=== PATIENT | male | born 1950 | race Two or more races ===

== ENCOUNTER 2018-04-01 23:34 | Inpatient (IN) | payer MEDICARE, MEDICAID ==
[~2018-04-01] VITALS: Ht 175.3 cm; Wt 68.0 kg
--- NOTE | 2018-04-01 23:35 | NUR ---
DR SHRUTI DUNHAM MD AT BEDSIDE FOR MSE.
[2018-04-01] MEDS ORDERED: MULT-1119 (23:51)
[2018-04-01] MEDS ORDERED: VALP250S4 PO (23:51)
[2018-04-01] MEDS ORDERED: FERR-56 PO (23:51)
[2018-04-01] MEDS ORDERED: DONE10TA11 PO (23:51)
[2018-04-01] MEDS ORDERED: RISP1SOL PO (23:51)
[2018-04-01] MEDS ORDERED: PRED20TA PO (23:51)
[2018-04-01] MEDS ORDERED: PANT40TA2 PO (23:51)
[2018-04-01] MEDS ORDERED: ACET-2154 PO ×2 (23:51)
[2018-04-01] MEDS ORDERED: MAGN30OR PO (23:51)
[2018-04-02 00:09] LABS: BASOPHILS # (AUTO) 0.1 K/uL (0.0-8.0); BASOPHILS % (AUTO) 0.6 % (0.0-2.0); CARBON DIOXIDE 27 mmol/L (21-32); CHLORIDE 101 mmol/L (98-107); CREATININE 1.4 mg/dL (0.6-1.3); EOSINOPHILS % (AUTO) 0.2 % (0.0-7.0); GLUCOSE 101 mg/dL (74-106); HEMATOCRIT 35.8 % (36.7-47.1); HEMOGLOBIN 11.4 g/dL (12.5-16.3); LYMPHOCYTES # (AUTO) 2.8 K/uL (20.0-40.0); LYMPHOCYTES % (AUTO) 29.2 % (20.5-51.5); MEAN CORPUSCULAR HEMOGLOBIN 22.2 uug (23.8-33.4); MEAN CORPUSCULAR HGB CONC 32 g/dL (32.5-36.3); MEAN CORPUSCULAR VOLUME 69.8 fL (73.0-96.2); MONOCYTES # (AUTO) 0.7 K/uL (2.0-10.0); MONOCYTES % (AUTO) 7.6 % (0.0-11.0); NEUTROPHILS % (AUTO) 62.4 % (38.5-71.5); PLATELET COUNT (AUTO) 416 K/uL (152-348); POTASSIUM 4.1 mmol/L (3.5-5.1); RED BLOOD CELL COUNT(AUTO) 5.13 MIL/uL (4.06-5.63); UREA NITROGEN, BLOOD 11 mg/dL (7-18); WHITE BLOOD COUNT (AUTO) 9.6 K/uL (3.6-10.2)
[2018-04-02 00:15] LABS: ACETAMINOPHEN 2.8 ug/mL (10-30); ALANINE AMINOTRANSFERASE 47 U/L (16-63); ALKALINE PHOSPHATASE 111 U/L (50-136); ASPARTATE AMINOTRANSFERASE 23 U/L (15-37); BILIRUBIN,DIRECT 0.1 mg/dL (0.0-0.2); BILIRUBIN,TOTAL 0.3 mg/dL (0.2-1.0); TOTAL PROTEIN, SERUM 6.8 g/dL (6.4-8.2)
[2018-04-02 00:22] LABS: ETHANOL < 3 MG/DL (0-0)
--- NOTE | 2018-04-02 00:23 | NUR ---
PT AMBULATED TO AND FROM BATHROOM W/ STEADY GAIT. NO DISTRESS NOTED.
[2018-04-02 00:26] LABS: *BILIRUBIN,URIN NEGATIVE (NEGATIVE); *BLOOD, URINE NEGATIVE (NEGATIVE); *CLARITY,URINE CLEAR (CLEAR); *COLOR,URINE LIGHT YELLOW (YELLOW); *KETONES,URINE NEGATIVE (NEGATIVE); *PROTEIN,URINE NEGATIVE (NEGATIVE); *UROBILINOGEN,URINE 0.2 E.U./dl (NORMAL); LEUKOCYTE ESTERASE ,URINE NEGATIVE (NEGATIVE); NITRITE, URINE NEGATIVE (NEGATIVE); UGLUCOSE NEGATIVE (NEGATIVE)
--- NOTE | 2018-04-02 00:32 | NUR ---
RADIOLOGY AT BEDSIDE FOR XRAY.
[2018-04-02 00:43] LABS: *AMPHETAMINE, URINE NEGATIVE (NEGATIVE); *BARBITURATE, URINE NEGATIVE (NEGATIVE); *CANNABINOID, URINE NEGATIVE (NEGATIVE); *COCCAINE, URINE NEGATIVE (NEGATIVE); *OPIATE, URINE NEGATIVE (NEGATIVE); *PHENCYCLIDINE SCREEN,URINE NEGATIVE (NEGATIVE)
[2018-04-02 01:05] LABS: BACTERIA,URINE NONE SEEN /HPF (NONE SEEN); RBC,URINE NONE SEEN /HPF (0-3); SQUAMOUS EPITHELIAL CELL,UR FEW /HPF (NONE SEEN)
--- NOTE | 2018-04-02 01:20 | NUR ---
REPORT GIVEN TO LUIS F SO.
--- NOTE | 2018-04-02 02:36 | NUR ---
Pt. admitted to [facility]HU, under care of Dr. BOWERS Belongs List completed
[2018-04-02 02:53] LABS: BAND % (MANUAL) 1 % (0-10); LYMPHOCYTES % (MANUAL) 21 % (20-40); METAMYELOCYTES % 3 % (0-1); MONOCYTES % (MANUAL) 8 % (2-10); NEUTROPHILS % (MANUAL) 63 % (42-75)
--- NOTE | 2018-04-02 03:00 | NUR ---
AT APPROX 0220 ADMITTED 68 YEAR OLD MALE FROM [facility] ON A 5150 FOR GD. AT TIME OF ADMISSION PATIENT WAS CALM AND COOPERATIVE WITH ADMISSION PROCESS; HOWEVER, HE REFUSED BODY ASSESSMENT AND PHOTOS. HE STATED, "I DON'T HAVE ANYTHING WRONG WITH MY BODY, I AM OKAY, MY SKIN IS GOOD." PATIENT IS UNDER THE CARE OF DR BOWERS. NEW ORDERS WERE OBTAINED AND CARRIED OUT. WILL CONTINUE TO MONITOR.
[2018-04-02] MEDS ORDERED: MAG HYDROX/AL HYDROX/SIMETH 30 ML LIQUID UDC PO PRN (03:15)
[2018-04-02] MEDS ORDERED: MAGNESIUM HYDROXIDE 30 ML LIQUID UDC PO PRN (03:15)
[2018-04-02 03:30] VITALS: BP 116/80
[2018-04-02 07:30] VITALS: BP 117/73
[2018-04-02] MEDS ORDERED: LOPERAMIDE HCL 2 MG CAPSULE PO ONE (14:00)
[2018-04-02] MEDS ORDERED: DIPHENOXYLATE HCL/ATROP SULF TABLET PO PRN (14:15)
--- NOTE | 2018-04-02 15:02 | NUR ---
Initial Discharge Instructions: Patient currently lives at [facility] [[address] [place] [address]; ]. Per pt, he would like to return there upon discharge. Spoke with Mallika at the facility who states that they patient will be able to go back there when ready for discharge. SW placed call to patient's daughter, Oneal ([phone]) and left a message. SW will continue to collaborate with patient and MD regarding discharge plan. SW will form a safe and proper discharge.
[2018-04-02 15:30] VITALS: BP 98/64
[2018-04-02] MEDS: LOPERAMIDE HCL 2 MG CAPSULE PO PRN ×2 (16:08→20:19)
[2018-04-02] MEDS: DIVALPROEX SPRINKLE 125 MG CAP.SPRINK PO SCH (17:48)
[2018-04-02] MEDS: BENZTROPINE MESYLATE 0.5 MG TABLET PO SCH (17:48)
[2018-04-02] MEDS: risperiDONE-M 0.5 MG TAB.RAPDIS PO SCH (17:48)
[2018-04-02 19:30] VITALS: BP 114/67
--- NOTE | 2018-04-02 19:45 | NUR ---
RECEIVED PATIENT IN THE HALLWAY, HE IS NOTED A/O X 2, ABLE TO AMBULATE TO STEADY GAIT AND ABLE TO MAKE HIS NEEDS KNOWN. HE IS NOTED WITH LOW MOOD, BLUNTED AFFECT, REFUSING TO ANSWERS BASIC QUESTION. ASKING FOR SLEEPING PILL. PATIENT WAS REDIRECTED AND REASSURED. SAFETY WAS EMPHASIS. WILL CONTINUE TO MONITOR
[2018-04-02] MEDS: LORAZEPAM 0.5 MG TABLET PO PRN (20:19)
[2018-04-02] MEDS: ACETAMINOPHEN 325 MG TABLET PO PRN (20:19)
--- NOTE | 2018-04-02 20:20 | NUR ---
PATIENT C/O HAVING MULTIPLE LOOSE STOOLS. IMODIUM 2MG PO PRN WAS GIVEN. HE ALSO C/O MODERATE SHOULDERS PAIN, TYLENOL 650MG PO PRN GIVEN FOR PAIN. HE WAS ALSO NOTED ANXIOUS, ATIVEN 0.5MG PO PRN WAS GIVEN. WILL CONTINUE TO MONITOR.
[2018-04-02] MEDS: TEMAZEPAM 7.5 MG CAPSULE PO PRN (21:31)
--- NOTE | 2018-04-02 21:35 | NUR ---
PATIENT REQUESTED A "SLEEPING PILL", HE STATED THE HE USUALLY GOES TO SLEEP EARLY AND CAN'T SLEEP. TEMAZEPAM 7.5MG PO PRN WAS GIVEN PER PT REQUEST AND NURSING ASSESSMENT. WILL CONTINUE TO MONITOR.
--- NOTE | 2018-04-03 | NUR ---
PATIENT NOTED SLEEPING IN HIS ROOM.
[2018-04-03] MEDS: PANTOPRAZOLE SODIUM 40 MG TABLET.DR PO SCH (06:02)
--- NOTE | 2018-04-03 06:24 | NUR ---
PATIENT SLEPT FOR APPROX 8HRS THROUGH THE NIGHT. NO AGGRESSIVE/COMBATIVE BX. NOTED DURING THE SHIFT. MEDICATION COMPLIANT AT THIS TIME.
[2018-04-03 07:07] LABS: BASOPHILS % (AUTO) 0.5 % (0.0-2.0); EOSINOPHILS % (AUTO) 0.4 % (0.0-7.0); HEMATOCRIT 34.6 % (36.7-47.1); HEMOGLOBIN 11.2 g/dL (12.5-16.3); LYMPHOCYTES # (AUTO) 1.5 K/uL (20.0-40.0); LYMPHOCYTES % (AUTO) 16.6 % (20.5-51.5); MEAN CORPUSCULAR HEMOGLOBIN 22.5 uug (23.8-33.4); MEAN CORPUSCULAR HGB CONC 32 g/dL (32.5-36.3); MEAN CORPUSCULAR VOLUME 69.5 fL (73.0-96.2); MONOCYTES # (AUTO) 0.9 K/uL (2.0-10.0); MONOCYTES % (AUTO) 9.4 % (0.0-11.0); NEUTROPHILS # (AUTO) 6.7 K/uL (1.8-8.9); NEUTROPHILS % (AUTO) 73.1 % (38.5-71.5); PLATELET COUNT (AUTO) 354 K/uL (152-348); RED BLOOD CELL COUNT(AUTO) 4.98 MIL/uL (4.06-5.63); WHITE BLOOD COUNT (AUTO) 9.2 K/uL (3.6-10.2)
[2018-04-03 07:19] LABS: CREATININE 1.1 mg/dL (0.6-1.3); MAGNESIUM 2.1 mg/dL (1.8-2.4); PHOSPHOROUS 3.9 mg/dL (2.5-4.9); POTASSIUM 3.8 mmol/L (3.5-5.1)
[2018-04-03 08:00] VITALS: BP 100/62
[2018-04-03] MEDS: BENZTROPINE MESYLATE 0.5 MG TABLET PO SCH ×3 (08:19→16:52)
[2018-04-03] MEDS: DIVALPROEX SPRINKLE 125 MG CAP.SPRINK PO SCH ×3 (08:19→16:52)
[2018-04-03] MEDS: risperiDONE-M 0.5 MG TAB.RAPDIS PO SCH ×3 (08:19→16:52)
[2018-04-03 08:37] LABS: BAND % (MANUAL) 1 % (0-10); EOSINOPHILS % (MANUAL) 1 % (0-8); LYMPHOCYTES % (MANUAL) 14 % (20-40); MONOCYTES % (MANUAL) 11 % (2-10); NEUTROPHILS % (MANUAL) 73 % (42-75)
[2018-04-03] MEDS: LOPERAMIDE HCL 2 MG CAPSULE PO PRN ×3 (08:40→21:38)
[2018-04-03 16:02] VITALS: BP 111/61
[2018-04-03 19:30] VITALS: BP 103/70
--- NOTE | 2018-04-03 19:45 | NUR ---
RECEIVED PATIENT IN THE HALLWAY, HE IS NOTED A/O X 2, ABLE TO AMBULATE WITH STEADY GAIT AND ABLE TO MAKE HIS NEEDS KNOWN. HE IS NOTED LESS DEPRESSED, CONTINUE WITHDRAWN TO HIS ROOM, BLUNTED AFFECT, GIVES SHORT ANSWER, EASILY IRRITABLE. HE ASKED FOR SLEEPING PILL AND ANTI-DIARRHEA MEDS. PATIENT WAS REDIRECTED AND REASSURED. SAFETY WAS EMPHASIS. WILL CONTINUE TO MONITOR
[2018-04-03] MEDS: ACETAMINOPHEN 325 MG TABLET PO PRN (21:09)
[2018-04-03] MEDS: TEMAZEPAM 7.5 MG CAPSULE PO PRN (21:38)
--- NOTE | 2018-04-03 21:40 | NUR ---
PATIENT APPROACHED THE NURSING STATION AND REQUESTED TYLENOL FOR SHOULDER PAIN. HE ALSO STATED THAT HE CONTINUE HAVING LOOSE STOOLS. WHEN ASKED TO SEE HIS LOOSE STOOL, HE STATED THAT HE FORGOT TO TELL ME AND FLUSHED THE TOILET. PATIENT WAS GIVEN TYLENOL 650MG PO PRN FOR PAIN AND IMODIUM 2MG PO PRN. HOWEVER; HE WAS TOLD THAT IN ORDER FOR HIM TO GET ANOTHER DOSE OF IMODIUM, HE WILL NEED TO SHOW HIS LOOSE STOOLS TO NURSING STAFF. WILL CONTINUE TO MONITOR.
[2018-04-04] MEDS: PANTOPRAZOLE SODIUM 40 MG TABLET.DR PO SCH (06:02)
--- NOTE | 2018-04-04 06:53 | NUR ---
PATIENT SLEPT FOR APPROX 8.30 HRS THROUGH THE NIGHT. NO LOOSE STOLE NOTED OR REPORTED AT THIS TIME. WILL CONTINUE TO MONITOR.
[2018-04-04 08:00] VITALS: BP 101/63
[2018-04-04] MEDS: BENZTROPINE MESYLATE 0.5 MG TABLET PO SCH ×3 (08:24→17:31)
[2018-04-04] MEDS: risperiDONE-M 0.5 MG TAB.RAPDIS PO SCH ×3 (08:24→17:31)
[2018-04-04] MEDS: DIVALPROEX SPRINKLE 125 MG CAP.SPRINK PO SCH ×3 (08:24→17:32)
[2018-04-04 16:00] VITALS: BP 104/66
[2018-04-04] MEDS: busPIRone 5 MG TABLET PO SCH (17:32)
[2018-04-04] MEDS: LOPERAMIDE HCL 2 MG CAPSULE PO PRN (18:22)
[2018-04-04] MEDS: TEMAZEPAM 7.5 MG CAPSULE PO PRN (20:21)
[2018-04-04] MEDS: ACETAMINOPHEN 325 MG TABLET PO PRN (20:21)
[2018-04-04 20:29] VITALS: BP 106/65
--- NOTE | 2018-04-05 05:31 | NUR ---
GPS/NSG Patient first observed awake on the unit, with fair appearance, flat affect, appeared to have low mood; alert, oriented times two. Patient at nursing station requesting prn for insomnia, increased agitation noted when staff advised prn was to be given at HS. Patient requested a prn for shoulder pain, administered as ordered along with prn for insomnia, effective outcome patient slept a total of seven and a half hours. Otherwise patient continues to remain isolative, does not engage staff when approached. Continue to monitor to ensure safety. Last observed lying in bed with eyes closed.
[2018-04-05] MEDS: PANTOPRAZOLE SODIUM 40 MG TABLET.DR PO SCH (06:40)
[2018-04-05 07:30] VITALS: BP 117/67
[2018-04-05] MEDS: busPIRone 5 MG TABLET PO SCH ×3 (08:17→16:56)
[2018-04-05] MEDS: BENZTROPINE MESYLATE 0.5 MG TABLET PO SCH ×3 (08:17→16:56)
[2018-04-05] MEDS: DIVALPROEX SPRINKLE 125 MG CAP.SPRINK PO SCH ×3 (08:17→16:56)
[2018-04-05] MEDS: risperiDONE-M 0.5 MG TAB.RAPDIS PO SCH ×3 (08:17→16:56)
[2018-04-05 15:35] VITALS: BP 105/62
--- NOTE | 2018-04-05 15:40 | NUR ---
Firearms Report: Quality Assurance Coach completed and submitted [employer] Firearms Report for 5250 certification for Grave Disability on 04/05/18.
[2018-04-05] MEDS: LOPERAMIDE HCL 2 MG CAPSULE PO PRN (18:54)
[2018-04-05] MEDS: ACETAMINOPHEN 325 MG TABLET PO PRN (20:00)
[2018-04-05] MEDS: TEMAZEPAM 7.5 MG CAPSULE PO PRN (20:21)
[2018-04-05 21:04] VITALS: BP 104/70
[2018-04-05] MEDS: LORAZEPAM 0.5 MG TABLET PO PRN (23:16)
[2018-04-06] MEDS: PANTOPRAZOLE SODIUM 40 MG TABLET.DR PO SCH (06:20)
[2018-04-06 07:30] VITALS: BP 132/66
[2018-04-06] MEDS: DIVALPROEX SPRINKLE 125 MG CAP.SPRINK PO SCH ×3 (08:41→16:46)
[2018-04-06] MEDS: BENZTROPINE MESYLATE 0.5 MG TABLET PO SCH ×3 (08:41→16:46)
[2018-04-06] MEDS: risperiDONE-M 0.5 MG TAB.RAPDIS PO SCH ×3 (08:41→16:45)
[2018-04-06] MEDS: busPIRone 5 MG TABLET PO SCH ×3 (08:41→16:45)
[2018-04-06] MEDS: LOPERAMIDE HCL 2 MG CAPSULE PO PRN ×2 (09:49→15:48)
[2018-04-06 16:54] VITALS: BP 108/68
[2018-04-06 20:00] VITALS: BP 107/70
[2018-04-06] MEDS: TEMAZEPAM 7.5 MG CAPSULE PO PRN (20:15)
[2018-04-06] MEDS: ACETAMINOPHEN 325 MG TABLET PO PRN (20:15)
[2018-04-07] MEDS: ACETAMINOPHEN 325 MG TABLET PO PRN ×2 (02:20→20:42)
[2018-04-07] MEDS: LORAZEPAM 0.5 MG TABLET PO PRN (02:20)
--- NOTE | 2018-04-07 02:58 | NUR ---
Pt WAS NOTED AWAKE AND LAYING IN BED. Pt SAID HE JUST WOKE UP AND HE CAN'T GO BACK TO SLEEP. COMPLAINED OF PAIN OF HIS SHOULDER AND THAT HE CAN'T SLEEP. REQUESTED FOR SOMETHING TO HELP HIM RELAX AND FALL ASLEEP. GIVEN ATIVAN PO PRN AND TYLENOL PO PRN. GOOD MED EFFECTIVENESS.
[2018-04-07] MEDS: PANTOPRAZOLE SODIUM 40 MG TABLET.DR PO SCH (06:17)
[2018-04-07] MEDS: risperiDONE-M 0.5 MG TAB.RAPDIS PO SCH ×3 (08:47→16:20)
[2018-04-07] MEDS: BENZTROPINE MESYLATE 0.5 MG TABLET PO SCH ×3 (08:47→16:20)
[2018-04-07] MEDS: DIVALPROEX SPRINKLE 125 MG CAP.SPRINK PO SCH ×3 (08:47→16:20)
[2018-04-07] MEDS: busPIRone 5 MG TABLET PO SCH ×3 (08:47→16:20)
[2018-04-07 11:21] VITALS: BP 109/69
[2018-04-07 15:16] VITALS: BP 104/65
[2018-04-07] MEDS: LOPERAMIDE HCL 2 MG CAPSULE PO PRN (16:20)
--- NOTE | 2018-04-07 17:29 | NUR ---
Pt without significant change in condition during shift. Pt A&O x2-3, able to provide self-care. No episode of confrontational or aggressive behavior towards other patients. Pt is compliant with medications and able to make his needs known. Denies pain at this time. Noted with good apetite during meals. Will continue to monitor.
[2018-04-07 20:00] VITALS: BP 115/79
[2018-04-07] MEDS: TEMAZEPAM 7.5 MG CAPSULE PO PRN (20:42)
[2018-04-08] MEDS: PANTOPRAZOLE SODIUM 40 MG TABLET.DR PO SCH (06:43)
[2018-04-08 07:30] VITALS: BP 92/61
[2018-04-08] MEDS: LORAZEPAM 0.5 MG TABLET PO PRN (08:28)
[2018-04-08] MEDS: LOPERAMIDE HCL 2 MG CAPSULE PO PRN ×3 (08:28→19:40)
[2018-04-08] MEDS: DIVALPROEX SPRINKLE 125 MG CAP.SPRINK PO SCH ×3 (08:45→16:18)
[2018-04-08] MEDS: risperiDONE-M 0.5 MG TAB.RAPDIS PO SCH ×3 (08:45→16:18)
[2018-04-08] MEDS: BENZTROPINE MESYLATE 0.5 MG TABLET PO SCH ×3 (08:45→16:18)
[2018-04-08] MEDS: busPIRone 5 MG TABLET PO SCH ×3 (08:45→16:18)
[2018-04-08 16:26] VITALS: BP 106/73
[2018-04-08 19:30] VITALS: BP 107/73
[2018-04-08] MEDS: ACETAMINOPHEN 325 MG TABLET PO PRN (19:40)
[2018-04-08] MEDS: TEMAZEPAM 7.5 MG CAPSULE PO PRN (20:56)
[2018-04-09] MEDS: PANTOPRAZOLE SODIUM 40 MG TABLET.DR PO SCH (06:11)
[2018-04-09] MEDS: busPIRone 5 MG TABLET PO SCH (08:24)
[2018-04-09] MEDS: BENZTROPINE MESYLATE 0.5 MG TABLET PO SCH (08:24)
[2018-04-09] MEDS: risperiDONE-M 0.5 MG TAB.RAPDIS PO SCH (08:24)
[2018-04-09] MEDS: DIVALPROEX SPRINKLE 125 MG CAP.SPRINK PO SCH (08:24)
--- NOTE | 2018-04-09 09:15 | NUR ---
Discharge Note: Patient will be discharged back to [facility] [[address] [place] [address]; ] via ambulance. Spoke with Mallika at the facility who states they are ready to accept the patient today. Left message with patients daughter, Oneal ([phone]) to alert about discharge plans. Patient is alert and oriented x3 and denies SI/HI. Patient is aware and agreeable with discharge plans. Patient will continue to follow-up at the facility with Dr. Cabrera (Catastrophe Claims Supervisor) and Dr. Cartwright (Psychiatrist)
--- NOTE | 2018-04-09 11:30 | NUR ---
GPS: Nursing Notes: Discharge Notes: Patient is awake and responding to his name, cooperative with nursing care, compliant with his medications, following staff directions, denies any SI/HI, denies any AH/VH, denies any pain or discomfort, denies any SOB, discharge to [facility] at [address] [place] [address] , report given to Fiona KERNS supervisor cellars at [facility], took all his belongings with him, transported to facility via ambulance. drug abuse social worker left message with patients daughterOneal ([phone]) to alert about discharge plans. Patient is aware and agreeable with discharge plans. Patient will continue to follow-up at the facility with Dr. Cabrera (Folder Taper Operator) and Dr. Cartwright (Psychiatrist) for aftercare at the facility.
== END 2018-04-09 11:30 | DRG 885 ==
LOC: ER 23:48 → GPS 04-02 01:50
PROVIDERS: ADMIT Psychiatry & Neurology Psychosomatic Medicine; ATTEND Nurse Practitioner Acute Care
DX: F25.9 Schizoaffective disorder, unspecified (principal); F02.80 Dementia in other diseases classified elsewhere, unspecified severity, without behavioral disturbance, psychotic disturbance, mood disturbance, and anxiety; N17.0 Acute kidney failure with tubular necrosis; E44.1 Mild protein-calorie malnutrition; E87.1 Hypo-osmolality and hyponatremia; D63.8 Anemia in other chronic diseases classified elsewhere; Z68.22 Body mass index [BMI] 22.0-22.9, adult; E86.0 Dehydration; G30.9 Alzheimer's disease, unspecified; F01.50 Vascular dementia, unspecified severity, without behavioral disturbance, psychotic disturbance, mood disturbance, and anxiety; Z63.8 Other specified problems related to primary support group; Z79.899 Other long term (current) drug therapy; R91.8 Other nonspecific abnormal finding of lung field
CPT/HCPCS: 36415; 71045; 80164; 80307; 83735; 84100; 85025; 93005; A4663; G0480; G0480-TC